=== PATIENT | female | born 1955 ===

== ENCOUNTER → 2022-02-19 11:27 | Outpatient (CLI) | payer MEDICARE, SELFPAY ==
[2022-02-19 12:53] LABS: COVID19 -Nasal RAPID Negative (Negative)
== END ==
PROVIDERS: Visit Provider Surgery
DX: Z20.822 Contact with and (suspected) exposure to COVID-19 (principal); Z01.812 Encounter for preprocedural laboratory examination
CPT/HCPCS: 87635; C9803

== ENCOUNTER 2022-02-22 09:21 | Day surgery (SDC) | payer OTHER, SELFPAY ==
--- NOTE | 2022-02-22 | PATH_ITS ---
[facility] Accession Number: [id number] . 01 Material submitted: . PART A: small bowel - SMALL BOWEL BIOPSY PART B: gastrointestinal site - GASTRIC BIOPSY PART C: esophagus - ESOPHAGEAL STRICTURE BIOPSY . 01 Clinical history: . A: R/O CELIAC DISEASE B: R/O H. PYLORI . 01 Diagnosis: A. Small Bowel, Biopsy: Duodenal mucosa with no diagnostic abnormality. Negative for active inflammation, features of sprue, dysplasia, or malignancy. . B. Stomach, Biopsy: Antral mucosa with mild chronic gastritis. Negative for Helicobacter by immunohistochemistry. Negative for intestinal metaplasia. Negative for dysplasia and malignancy. . C. Esophagus, Stricture, Biopsy: Squamocolumnar junctional mucosa with no diagnostic abnormality. Negative for intestinal metaplasia. Negative for dysplasia and malignancy. . MRV 02/25/2022 1352 Local . 01 Electronically signed: . Juanita Harvey MD, Pathologist NPI- [id number] . 01 Gross description: . Part A: SMALL BOWEL BIOPSY: Received in formalin are 3 fragment(s) of leyva, soft tissue measuring 0.3 x 0.3 x 0.2 cm to 0.2 x 0.2 x 0.1 cm submitted entirely in 1 cassette(s) Part B: GASTRIC BIOPSY: Received in formalin are 2 fragment(s) of leyva, soft tissue measuring 0.5 x 0.2 x 0.2 cm to 0.3 x 0.2 x 0.2 cm submitted entirely in 1 cassette(s) Part C: ESOPHAGEAL STRICTURE BIOPSY: Received in formalin are multiple fragment(s) of leyva, soft tissue measuring 0.9 x 0.5 x 0.1 cm in aggregate submitted entirely in 1 cassette(s) /CPE 02/23/2022 0726 Local . 01 Microscopic: . B. An immunohistochemical stain was performed to evaluate for Helicobacter organisms and is negative. The control stain showed appropriate reactivity. . C. An AB/PAS stain was performed to evaluate for intestinal metaplasia and is negative. The control stain showed appropriate reactivity. . * This test was developed and its performance characteristics determined by [employer]. It has not been cleared or approved by the U.[place]. Food and Drug Administration. The FDA has determined that such clearance or approval is not necessary. This test is used for clinical purposes. It should not be regarded as investigational or for research. . 01 Pathologist provided ICD-10: R10.9 . 01 CPT . 093960, 891969, 528308, R64063, 661896 Specimen Comment: A courtesy copy of this report has been sent to [phone] Performed at: 01 [facility] [address] [place] [address], [place], [place] [id number] MD Vladimir Jimenez MD Phone: [phone]
[2022-02-22 09:50] VITALS: BMI 25.6
[2022-02-22] MEDS: SODIUM CHLORIDE 0.9% 1,000 ML 70 ML IV (10:01)
--- NOTE | 2022-02-22 10:03 | P.HP_ITS ---
History of Present Illness History of Present Illness Date Patient Seen: 02/22/22 Time Patient Seen: 10:03 Chief complaint: SDC Narrative: Patient is a very pleasant 66-year-old female who presented for upper endoscopy. She was last seen in the office on 11/26/21. She states since that time she has had some improvement of her symptoms. Her bloating has improved a little bit after using senna more frequently. At that time she was seen for nausea vomiting, abdominal pain, bloating, and difficulty swallowing. She was having food get stuck. Patient History Medical History (Updated 02/22/22 @ 09:50 by Mony Causey RN) Diverticulitis GERD (gastroesophageal reflux disease) Gout Family & Social History Social History: household members spouse Tobacco & Substance use: Smoking Status Never smoker alcohol intake never Substance Use Type does not use Meds Home Medications and Allergies Home Medications Medication Instructions Recorded Confirmed Type allopurinol 100 mg tablet 100 mg PO BID 02/22/22 02/22/22 History ascorbic acid (vitamin C) 1,000 mg 1,000 mg PO DAILY 02/22/22 02/22/22 History tablet (Vitamin C) cetirizine 10 mg tablet (Zyrtec) 10 mg PO DAILY allergies 02/22/22 02/22/22 History cholecalciferol (vitamin D3) 25 25 mcg PO DAILY 02/22/22 02/22/22 History mcg (1,000 unit) chewable tablet (Vitamin D3) vitamin E 100 unit tablet 100 unit PO DAILY 02/22/22 02/22/22 History Allergies Allergy/AdvReac Type Severity Reaction Status Date / Time No Known Drug Allergies Allergy Verified 02/22/22 09:48 Review of Systems Review of Systems ROS: Yes All systems reviewed with the patient and are negative except as otherwise documented Exam Const General: cooperative, healthy appearing, comfortable, well developed and No acute distress [facility] Head: atraumatic Resp Effort & Inspection: normal respiratory effort, able to speak in complete sentences and no audible wheezes Auscultation: clear to auscultation bilaterally Cardio Rate: regular rate Rhythm: regular rhythm Assessment & Plan Assessment & Plan narrative: 1. Nausea, vomiting 2. Abdominal pain 3. Abdominal bloating 4. Dysphagia EGD today with possible dilation, further recommendations to follow Time Spent With Patient Critical Care time: I spent a total of [] minutes of critical care time on this patient's care to day; this time is exclusive of procedural time.
[2022-02-22 10:04] VITALS: BP 125/80; PULSE 77; RESP 16; TEMP 36.3; O2SAT 99
--- NOTE | 2022-02-22 10:19 | PM.OP.EGD ---
Operative Date/Time/Diagnoses Date of procedure: 02/22/22 Time of procedure: 10:09 Procedure Notes Procedure in detail: Surgeon: Rochelle Syed DO Procedure: Esophagogastroduodenoscopy with biopsy Preoperative diagnosis: 1. Nausea vomiting 2. Abdominal pain 3. Bloating 4. Esophageal dysphagia Postoperative diagnosis: 1. 6 Cm hiatal hernia 2. Tortuous esophagus 3. Mild Schatzki's ring, biopsied 4. Mild antral gastritis, biopsied 5. Normal-appearing duodenum, biopsied rule out celiac sprue Medications: Monitored anesthesia care Preanesthesia Assessment An H and P was performed/updated and the Px?s ASA class is 2. The procedure was discussed in detail with the patient. The potential risks and complications including infection, bleeding, missed lesions, perforation, need for surgery in case of perforation, prolonged hospital stay, and were explained. A brief question and answer period was allotted and once all questions were answered, informed consent was obtained. The patient was brought back to the procedure room and placed on standard monitoring. The patient?s vital signs were monitored continuously throughout the entire procedure. Prior to starting, a timeout was performed to confirm the patient?s identity, allergies, medications, and procedure. Procedure in detail The patient was placed in left lateral decubitus position and a bite block was inserted. The tip of the upper endoscope was placed into the mouth and advanced without difficulty under direct visualization into the esophagus. Esophagus: Moderately tortuous middle lower 3rd of the esophagus. Subtle Schatzki's ring with mild nodularity, biopsied out Doshi's esophagus Stomach: 6 cm hiatal hernia noted from 32-38 cm. Mild antral gastritis, biopsied to out H pylori. Duodenum: Normal appearing duodenum, biopsy to rule out celiac sprue The patient tolerated the procedure well and will be brought back to the recovery area to be discharged once criteria are met. Complications There were no complications and estimated blood loss was minimal. Recommendations: Resume previous diet Continue outPx medications Follow up pathology results Repeat EGD based on pathology Office follow up to discuss further workup An emergency contact number was given to the patient for any complications related to the procedure
[2022-02-22 10:24] VITALS: BP 105/65; PULSE 71; RESP 16; TEMP 36.4; O2SAT 95
[2022-02-22 10:29] VITALS: BP 120/74; PULSE 70; RESP 20; TEMP 36.3; O2SAT 95
[2022-02-22 10:33] VITALS: BP 117/83; PULSE 68; RESP 19; TEMP 36.4; O2SAT 94
== END 2022-02-22 11:02 | disposition home or self-care (01) ==
PROVIDERS: PCP Physician Assistant; Referring Provider Student in an Organized Health Care Education/Training Program; Visit Provider Student in an Organized Health Care Education/Training Program
PROC: 0DJ08ZZ Inspection of Upper Intestinal Tract, Via Natural or Artificial Opening Endoscopic (ICD-10-PCS; CPT 43235; principal; 2022-02-22 10:30)
DX: R13.19 Other dysphagia (principal); K22.2 Esophageal obstruction; K44.9 Diaphragmatic hernia without obstruction or gangrene; K29.50 Unspecified chronic gastritis without bleeding
CPT/HCPCS: 43239; J2704